=== PATIENT | female | born 1985 | race Caucasian/White ===

== ENCOUNTER → 2016-06-01 | Outpatient (CLI) | payer MEDICAID | END | disposition home or self-care (01) | LOC: LABWHC1 09:26 | PROVIDERS: ATTEND Obstetrics & Gynecology | DX: R53.83 Other fatigue (principal) | CPT/HCPCS: 36415; 82306; 84439; 84443 ==

== ENCOUNTER → 2016-07-01 | Outpatient (CLI) | payer MEDICAID ==
[2016-07-01 07:19] LABS: Basophils # (A) 0.1 k/uL (0-0.2); Basophils % (A) 1 %; CH 31.5; CHCM 33.9; Eosinophils # (A) 0.1 k/uL (0-0.7); Eosinophils % (A) 2 %; HCT 42.5 % (34.0-46.0); HGB 14.7 gm/dL (11.4-16.0); Luc # (Auto) 0.26; Luc % (Auto) 4; Lymphocytes # (A) 1.7 k/uL (1.0-4.8); Lymphocytes % (A) 22 %; MCH 32.2 pg (25.0-35.0); MCHC 34.5 g/dL (31.0-37.0); MCV 93.3 fL (80.0-100.0); Monocytes # (A) 0.3 k/uL (0-1.0); Monocytes % (A) 4 %; Neutrophils # (A) 5.2 k/uL (1.3-7.7); Neutrophils % (A) 68 %; RBC 4.56 m/uL (3.80-5.40); RDW 11.6 % (11.5-15.5); WBC 7.6 k/uL (3.8-10.6); WBC (Perox) 7.66
[2016-07-01 09:08] LABS: Erythrocyte Sedimentation Rate 20 mm/hr (0-20)
[2016-07-01 10:36] LABS: ALT 49 U/L (9-52); AST 27 U/L (14-36); Alkaline Phosphatase 64 U/L (38-126); Anion Gap 12 mmol/L; Blood Urea Nitrogen 12 mg/dL (7-17); Calcium 9.8 mg/dL (8.4-10.2); Carbon Dioxide 27 mmol/L (22-30); Chloride 100 mmol/L (98-107); Cholesterol 209 mg/dL (<200); Glucose 97 mg/dL (74-99); HDL Cholesterol 44 mg/dL (40-60); Non-African American GFR(MDRD) >60 (>60 ml/min/1.73 sqM); Potassium 4.9 mmol/L (3.5-5.1); Sodium 139 mmol/L (137-145); Total Bilirubin 0.6 mg/dL (0.2-1.3); Total Protein 7.9 g/dL (6.3-8.2); Triglycerides 144 mg/dL (<150)
[2016-07-01 11:24] LABS: Vitamin B12 498 pg/mL (239-931)
[2016-07-01 13:09] LABS: Hemoglobin A1C 5.5 % (4.2-6.1)
== END | disposition home or self-care (01) ==
LOC: LABWHC1 06:34
PROVIDERS: ATTEND Family Medicine
DX: E55.9 Vitamin D deficiency, unspecified (principal); R53.83 Other fatigue; E66.9 Obesity, unspecified
CPT/HCPCS: 36415; 80053; 80061; 81025; 82306; 82607; 83036; 84439; 85025; 85652

== ENCOUNTER → 2016-08-16 | Outpatient (CLI) | payer MEDICAID | END | disposition home or self-care (01) | LOC: LABWHC1 08:46 | PROVIDERS: ATTEND Family Medicine | DX: E55.9 Vitamin D deficiency, unspecified (principal) | CPT/HCPCS: 36415; 82306 ==

== ENCOUNTER → 2021-06-12 | Outpatient (CLI) | payer MEDICAID ==
[2021-06-12 14:45] LABS: Basophils # (A) 0.05 X 10*3/uL (0.00-0.10); Basophils % (A) 0.9 %; Eosinophils # (A) 0.12 X 10*3/uL (0.04-0.35); Eosinophils % (A) 2.1 %; HCT 43.7 % (37.2-46.3); HGB 14.2 g/dL (12.0-15.0); Immature Grans, Automated 0.3 %; Lymphocytes # (A) 1.55 X 10*3/uL (0.90-5.00); Lymphocytes % (A) 26.7 %; MCH 31.4 pg (27.0-32.0); MCHC 32.5 g/dL (32.0-37.0); MCV 96.7 fL (80.0-97.0); Mean Platelet Volume 9.4 fL (9.5-12.2); Monocytes # (A) 0.47 X 10*3/uL (0.20-1.00); Monocytes % (A) 8.1 %; NRBC Per 100 WBC 0 /100 WBCS (0.0-0.0); Neutrophils # (A) 3.59 X 10*3/uL (1.80-7.70); Neutrophils % (A) 61.9 %; Platelet Count 373 X 10*3/uL (140-440); RBC 4.52 X 10*6/uL (4.10-5.20); RDW 11.8 % (11.5-14.5)
[2021-06-12 15:05] LABS: ALT 27 U/L (8-44); AST 22 U/L (13-35); African American GFR (CKD) 114.9 (60.0-200.0); Albumin 4.4 g/dL (3.8-4.9); Albumin/Globulin Ratio 1.47 (1.60-3.17); Alkaline Phosphatase 53 U/L (41-126); BUN/Creat Ratio 13.89 Ratio (12.00-20.00); Blood Urea Nitrogen 10.9 mg/dL (9.0-27.0); Calcium 9.8 mg/dL (8.7-10.3); Carbon Dioxide 22.9 mmol/L (20.0-27.5); Chloride 104 mmol/L (96-109); Glucose 98 mg/dL (70-110); Non-African American GFR(CKD) 99.1 (60.0-200.0); Potassium 4.8 mmol/L (3.5-5.5); Sodium 139 mmol/L (135-145); Total Protein 7.4 g/dL (6.2-8.2)
== END | disposition home or self-care (01) ==
LOC: LABWHC1 10:00
PROVIDERS: ATTEND Family Medicine
DX: F41.9 Anxiety disorder, unspecified (principal); R00.0 Tachycardia, unspecified; R03.0 Elevated blood-pressure reading, without diagnosis of hypertension
CPT/HCPCS: 36415; 80053; 84443; 85025